=== PATIENT | female | born 1985 | race Caucasian/White ===

== ENCOUNTER 2017-09-23 21:40 | Emergency (ER) | payer MEDICAID ==
[~2017-09-23] VITALS: Ht 165.1 cm; Wt 100.0 kg
[2017-09-23 21:41] VITALS: BP 140/85; PULSE 83; RESP 16; TEMP 98.6; O2SAT 98
--- NOTE | 2017-09-23 22:33 | PD ---
HPI Chief Complaint: GI Complaint Time Seen by Provider: 21:58 Travel History International Travel<30 days: No Contact w/Intl Traveler<30days: No Traveled to known affect area: No History of Present Illness HPI This is a 32-year-old female who presents to the emergency department with a painful area near her rectum that's been going on for 1 week, constant, worse with walking and moving, improved with rest associated with some white vaginal discharge. She also says for one day she's had intermittent vomiting and 2 episodes of loose stool. She says she has had 2 sexual partners in the past 6 months, one of which she didn't know very well. She Has had sexually transmitted diseases in the past. [facility] Past Medical History Medical History: Denies Significant Hx Diminished Hearing: No Immunizations Current: Yes ?: Not Past Surgical History Gynecologic Surgery: Yes (IUD PLACEMENT) Social History Alcohol Use: No Tobacco Use: No Substance Use: No Allergies-Medications (Allergen,Severity, Reaction): Coded Allergies: Penicillins (Verified Allergy, Unknown, UNKNWON, 09/23/17) amoxicillin (Verified Allergy, Unknown, UNKNOWN, 09/23/17) Reported Meds & Prescriptions Reported Meds & Active Scripts Active No Active Prescriptions or Reported Medications Review of Systems Except as stated in HPI: all other systems reviewed are Neg Physical Exam Narrative GENERAL:Well appearing, no acute distress SKIN: Focused skin assessment warm and dry. HEAD: Atraumatic. Normocephalic. EYES: Pupils equal and round. No injection or drainage. ENT: Moist mucous membranes NECK: Trachea midline. CARDIOVASCULAR: Regular rate and rhythm. No murmur appreciated. RESPIRATORY: Clear to auscultation. Breath sounds equal bilaterally. GASTROINTESTINAL: Abdomen soft, non-tender, nondistended. 1 cm area of ulceration adjacent to the rectum with no surrounding vesicles or other lesions. MUSCULOSKELETAL: No obvious deformities. PAN WASHER HAND: Scant white vaginal discharge in the vault with no cervical motion tenderness or adnexal tenderness. No vaginal lesions. NEUROLOGICAL: Awake and alert. No obvious cranial nerve deficits. Moving all extremities. PSYCHIATRIC: Appropriate mood and affect; insight and judgment normal. Data Data Last Documented VS Vital Signs Date Time Temp Pulse Resp B/P (MAP) Pulse Ox O2 Delivery O2 Flow Rate FiO2 09/23/17 21:41 98.6 83 16 140/85 (103) 98 Room Air Orders Orders Gc And Chlamydia Pcr (09/23/17 22:10) Wet Prep Profile (09/23/17 22:10) Azithromycin Powd Pack (Zithromax Powd P (09/23/17 22:45) Ceftriaxone Inj (Rocephin Inj) (09/23/17 22:45) Lidocaine 1% Inj (50 Ml) (Xylocaine 1% I (09/23/17 22:45) Labs Laboratory Tests Test 09/23/17 22:30 Clue Cells (Wet Prep) NONE SEEN Vaginal Trichomonas (Wet Prep) NONE SEEN Vaginal Yeast (Wet Prep) NONE SEEN MDM Medical Decision Making Medical Screen Exam Complete: Yes Emergency Medical Condition: Yes Interpretation(s) Wet prep is negative for clue cells or Trichomonas Differential Diagnosis Cervicitis, herpes, friction blister, PID, gastroenteritis Narrative Course This is a 32-year-old female who presents to the emergency department with a lesion adjacent to her rectal area. The lesion is isolated and I don't appreciate any objective findings on her exam to suggest a herpes outbreak. I discussed with her that possible that this is an HSV lesion but think it's also possible that it's a small friction blister. I advised her to use a barrier cream and to follow-up with her primary care physician as an outpatient. I don' t think it is warranted to treat her for herpes at this time. If she develops further symptoms she should pursue treatment. She does have some vaginal discharge and had a unknown sexual partners she was empirically treated for gonorrhea and chlamydia. Wet prep was reassuring. I think her vomiting and diarrhea is unrelated. She appears well hydrated and has a benign exam. She has a mild gastroenteritis. Diagnosis Primary Impression: Vaginal discharge Patient Instructions: General Instructions Additional Instructions: If you develop fever, chills, severe abdominal pain, persistent vomiting or inability to eat return to the emergency department. Your pelvic exam today did not include a Pap smear. It is important to followup with a eyelet punch operator on a yearly basis to be tested for cervical cancer as we do not do that from the emergency department. If there is a concern that you have sexually transmitted disease, your partner should be tested. You should followup with your eyelet punch operator or with the health department to get tested for other sexually transmitted diseases like HIV and syphilis, as we do not test for these in the emergency department Med/Other Pt SpecificInfo: No Change to Meds Scripts No Active Prescriptions or Reported Meds Disposition: 01 DISCHARGE HOME Condition: Stable Wanda Howard MD Sep 23, 2017 22:33
[2017-09-23] MEDS ORDERED: cefTRIAXone 250 MG VIAL IM ONE (22:45)
[2017-09-23] MEDS ORDERED: AZITHROMYCIN PWD FOR SUSP 1 GM PACKET PO ONE (22:45)
[2017-09-23] MEDS ORDERED: LIDOCAINE HCL 1% 50 ML VIAL IM ONE (22:45)
[2017-09-24 07:16] LABS: CHLAMYDIA PCR NOT DETECTED (NOT DETECT); NEISSERIA PCR NOT DETECTED (NOT DETECT)
== END 2017-09-24 | disposition home or self-care (01) ==
LOC: NEPD 21:40
DX: N89.8 Other specified noninflammatory disorders of vagina (principal); K62.89 Other specified diseases of anus and rectum; R11.10 Vomiting, unspecified
CPT/HCPCS: 87210; 87491; 87591; 96372; 99284; J0696

== ENCOUNTER 2018-03-24 12:58 | Emergency (ER) | END 2018-03-24 16:22 | disposition home or self-care (01) | DX: N73.9 Female pelvic inflammatory disease, unspecified (principal); Z72.0 Tobacco use; Z88.0 Allergy status to penicillin | CPT/HCPCS: 74018; 84703; 87210; 87491; 87591; 96372; 99284; J0696 ==

== ENCOUNTER 2018-04-05 06:43 | Emergency (ER) | payer MEDICAID ==
[~2018-04-05] VITALS: Ht 165.1 cm; Wt 105.0 kg
[~2018-04-05 06:43] MED LIST: DOXY100C PO; IBUP1TAB7 PO; METR-1 PO; TRAM50 PO
[2018-04-05 06:45] VITALS: BP 137/76; PULSE 113; RESP 18; TEMP 97.6; O2SAT 96
--- NOTE | 2018-04-05 07:40 | RADRPT ---
EXAM DATE: 04/05/2018 7:27 AM EDT AGE/SEX: 32 years / Female INDICATIONS: Cough. Cold symptoms. CLINICAL DATA: This is the patient's initial encounter. Patient reports that signs and symptoms have been present for 1 day and indicates a pain score of 2/10. MEDICAL/SURGICAL HISTORY: None. None. COMPARISON: No prior exams available for comparison. FINDINGS: There is a focal alveolar consolidation of the right upper lobe consistent with pneumonia and/or atel ectasis. Clinical correlation is recommended. The left lung is clear. The heart is normal. No pulmona ry edema is noted. CONCLUSION: Focal alveolar consolidation of the right upper lobe consistent with pneumonia and/or atelectasis. Cl inical correlation is recommended. Electronically signed by: Doug Barrera MD 04/05/2018 7:38 AM EDT
[2018-04-05] MEDS ORDERED: LEVA750T9 PO (08:28)
[2018-04-05] MEDS ORDERED: LEVOFLOXACIN 750 MG TAB PO ONE (09:30)
--- NOTE | 2018-04-05 10:48 | PD ---
HPI Chief Complaint: Cold / Flu Symptoms Time Seen by Provider: 07:33 Travel History International Travel<30 days: No Contact w/Intl Traveler<30days: No Traveled to known affect area: No History of Present Illness HPI The patient was seen and examined in the presence of the nurse. This patient complains of cough and congestion. She is bringing up greenish colored mucus. She is not short of breath. No documented fever. Symptom severity is moderate. No alleviating factors. No exacerbating factors. She is a non- smoker. PFSH Past Medical History Medical History: Denies Significant Hx Diminished Hearing: No Immunizations Current: Yes Tetanus Vaccination: > 5 Years Influenza Vaccination: No ?: Not LMP: HAS IUD, DENIES HAVING PERIODS Past Surgical History Gynecologic Surgery: Yes (IUD PLACEMENT) Other Surgery: Yes (LASER LIPO) Social History Alcohol Use: Yes (OCC) Tobacco Use: No Substance Use: No Allergies-Medications (Allergen,Severity, Reaction): Coded Allergies: Penicillins (Verified Allergy, Unknown, UNKNWON, 04/05/18) amoxicillin (Verified Allergy, Unknown, UNKNOWN, 04/05/18) Reported Meds & Prescriptions Reported Meds & Active Scripts Active Levaquin (Levofloxacin) 750 Mg Tablet 750 Mg PO DAILY Review of Systems General / Constitutional: No: Fever Eyes: No: Visual changes HENT: No: Headaches Cardiovascular: No: Chest Pain or Discomfort Respiratory: Positive: Cough, No: Shortness of Breath Gastrointestinal: No: Abdominal Pain Genitourinary: No: Dysuria Musculoskeletal: No: Pain Skin: No Rash Neurologic: No: Weakness Psychiatric: No: Depression Endocrine: No: Polydipsia Hematologic/Lymphatic: No: Easy Bruising Physical Exam Narrative GENERAL: Well-nourished, well-developed patient in no apparent distress. SKIN: Focused skin assessment reveals no rash and nodules. Skin is Warm and dry. HEAD: Atraumatic. Normocephalic. EYES: Pupils equal and round. No scleral icterus. No injection or drainage. ENT: No nasal bleeding or discharge. Mucous membranes pink and moist. NECK: Trachea midline. No JVD. CARDIOVASCULAR: Regular rate and rhythm. No murmur appreciated. RESPIRATORY: No accessory muscle use. Clear to auscultation. Breath sounds equal bilaterally. GASTROINTESTINAL: Abdomen soft, non-tender, nondistended. Hepatic and splenic margins not palpable. MUSCULOSKELETAL: No obvious deformities. No clubbing. No cyanosis. No edema. NEUROLOGICAL: Awake and alert. No obvious cranial nerve deficits. Motor grossly within normal limits. Normal speech. PSYCHIATRIC: Appropriate mood and affect; insight and judgment normal. Data Data Last Documented VS Vital Signs Date Time Temp Pulse Resp B/P (MAP) Pulse Ox O2 Delivery O2 Flow Rate FiO2 04/05/18 06:45 97.6 113 18 137/76 (96) 96 Orders Orders Influenzae A/B Antigen (04/05/18 06:51) Chest, Single Ap (04/05/18 ) Levofloxacin (Levaquin) (04/05/18 09:30) MDM Medical Decision Making Medical Screen Exam Complete: Yes Emergency Medical Condition: Yes Medical Record Reviewed: Yes Differential Diagnosis Pneumonia, Bronchitis, URI Narrative Course I have reviewed the patient's electronic medical record. Influenza swab is negative I reviewed her chest x-ray which shows a right upper lobe infiltrate consistent with pneumonia This patient has pneumonia but does not look septic nor toxic. Her vital signs are normal. She looks stable for outpatient follow-up I gave her a dose of Levaquin here and will give her 10 days of outpatient therapy with Levaquin. She reports penicillin allergy The patient was advised to follow up with their physician and return if they worsen. No history of diabetes or HIV. According to her she has not used IV drugs for 3 years. Diagnosis Primary Impression: Right upper lobe pneumonia Qualified Codes: J18.1 - Lobar pneumonia, unspecified organism Additional Instructions: The patient was advised to follow up with their physician and return if they worsen. Med/Other Pt SpecificInfo: Prescription(s) given Scripts Levofloxacin (Levaquin) 750 Mg Tablet 750 MG PO DAILY for Infection, #10 TAB 0 Refills Prov: Quinten Harman MD 04/05/18 Disposition: 01 DISCHARGE HOME Condition: Stable Quinten Harman MD April 05, 2018 10:48
== END 2018-04-05 11:03 | disposition home or self-care (01) ==
LOC: NEPE 06:43
DX: J18.1 Lobar pneumonia, unspecified organism (principal)
CPT/HCPCS: 71045; 87804; 99284